=== PATIENT | male | born 1995 | race Two or more races ===

== ENCOUNTER 2020-08-11 09:43 | Emergency (ER) | payer SELFPAY ==
[~2020-08-11] VITALS: Ht 170.2 cm; Wt 72.0 kg
[2020-08-11] MEDS ORDERED: acetaminophen 325mg tablet PO ONE (11:45)
[2020-08-11 12:19] VITALS: BP 141/90
== END 2020-08-11 12:21 | disposition home or self-care (01) ==
LOC: ER 09:43
DX: S00.83XA Contusion of other part of head, initial encounter (principal); S50.812A Abrasion of left forearm, initial encounter; R42 Dizziness and giddiness; W19.XXXA Unspecified fall, initial encounter; Y93.89 Activity, other specified; Y92.89 Other specified places as the place of occurrence of the external cause; Y99.8 Other external cause status
CPT/HCPCS: 70450; 99284